=== PATIENT | female | born 1995 | race African-American/Black ===

== ENCOUNTER 2025-06-10 20:37 | Emergency (ER) | payer SELFPAY ==
[~2025-06-10] VITALS: Ht 170.2 cm; Wt 73.0 kg
[2025-06-10 20:52] VITALS: O2SAT 99
[2025-06-10] MEDS: ACETAMINOPHEN 325MG TABLET PO ONE (23:53)
[2025-06-11 00:34] LABS: CLARITY URINE CLOUDY (CLEAR); COLOR URINE YELLOW (YELLOW); GLUCOSE URINE NEGATIVE (NEGATIVE); KETONES URINE TRACE (NEGATIVE); LEUKOCYTE ESTERASE URINE 2+ (NEGATIVE); NITRITE URINE NEGATIVE (NEGATIVE); OCCULT BLOOD URINE NEGATIVE (NEGATIVE); PH URINE 5.5 (4.5-8.0); PROTEIN URINE NEGATIVE (NEGATIVE); SPECIFIC GRAVITY URINE 1.031 (1.005-1.030); UROBILINOGEN URINE 1.0 E.U./dL (0.2-1.0)
[2025-06-11] MEDS ORDERED: CEPH500C2 MT (00:52)
[2025-06-11 01:19] VITALS: BP 118/63; PULSE 83; RESP 16; TEMP 37; O2SAT 99
[2025-06-11 01:50] LABS: BACTERIA URINE 1+; SQUAMOUS EPITHELIAL CELL URINE 1+ /lpf (RARE/1+)
[2025-06-11] MEDS ORDERED: METR-167 MT (03:29)
== END 2025-06-11 01:21 | disposition home or self-care (01) ==
LOC: ER 20:37
DX: N76.0 Acute vaginitis (principal); N39.0 Urinary tract infection, site not specified; Z88.0 Allergy status to penicillin
CPT/HCPCS: 81003; 81025; 87210; 99284